=== PATIENT | female | born 1980 | race Two or more races ===

== ENCOUNTER 2019-03-30 15:03 | Emergency (ER) | payer SELFPAY ==
[~2019-03-30] VITALS: Ht 162.6 cm; Wt 93.9 kg
--- NOTE | 2019-03-30 15:05 | NUR ---
PATIENT CAME IN TO [facility] C/O L SHOULDER PAIN, POSSIBLE DISLOCATION. HX OF SHOULDER DISLOCATION. ON ROOM AIR, BREATHING EVENLY AND UNLABORED. CONNECTED TO THE MONITOR AND PULSE OX. WILL CONTINUE TO MONITOR ACCORDINGLY.
[2019-03-30] MEDS ORDERED: PROPOFOL 20 ML IV ONE (15:29)
[2019-03-30] MEDS ORDERED: PROPOFOL 200 MG/20 ML VIAL IV ONE (15:30)
[2019-03-30 16:20] VITALS: BP 122/76
--- NOTE | 2019-03-30 16:20 | NUR ---
Patient discharged to home in stable condition. Written and verbal after care instructions given. Patient verbalizes understanding of instruction.IV removed. Catheter intact and site benign. Pressure and 4x4 applied to site. No bleeding noted.
== END 2019-03-30 16:20 | disposition home or self-care (01) ==
LOC: ER 15:07
DX: S43.085A Other dislocation of left shoulder joint, initial encounter (principal); W22.8XXA Striking against or struck by other objects, initial encounter; Y93.89 Activity, other specified; Y92.831 Amusement park as the place of occurrence of the external cause; Y99.8 Other external cause status
CPT/HCPCS: 23650; 73030 ×2; 99152; 99285; J2704; J7030; G0500